=== PATIENT | female | born 1950 | race Caucasian/White ===

== ENCOUNTER → 2017-03-29 | Outpatient (CLI) | payer MEDICARE, OTHER ==
[~2017-03-29] MED LIST: IOPAMIDOL 76% 75 ML INFUS BTL 75 ML ONE; NS 0.9% 20 ML SDV 40 ML ONE
--- NOTE | 2017-03-29 13:41 | RADIOLOGY IMAGING REPORT ---
FACILITY: [facility] PATIENT NAME: Meera Maguire : 1950 MR: [id number] V: [id number] EXAM DATE: ORDERING PHYSICIAN: SLIME DEE TECHNOLOGIST: Location: [facility] [place] Patient: Meera Maguire : 1950 Visit/Account:[id number] Date of Sevice: 03/29/2017 EXAMINATION: CT sinus with IV contrast HISTORY: Chronic maxillary sinusitis. COMPARISON: None. TECHNIQUE: Contiguous axial images were obtained through the paranasal sinuses with intravenous cont rast administration. Coronal and sagittal reformatted images were obtained from the axial source data . CONTRAST: 75 mL of IV [id number]. One of the following dose optimization techniques was utilized in the performance of this exam: Autom ated exposure control; adjustment of the mA and/or kV according to the patient's size; or use of an i terative reconstruction technique. Specific details can be referenced in the facility's radiology C T exam operational policy. FINDINGS: Maxillary sinuses: Minimal mucosal thickening in both maxillary sinuses measuring less than 5 mm. Frontal sinuses: The frontal sinuses are hypoplastic. The frontal sinuses are clear. Ethmoid air cells: Mild mucosal thickening in the bilateral ethmoid air cells. Sphenoid sinuses: Sphenoid sinuses are relatively small. The sphenoid sinuses are clear. Ostiomeatal units: Patent. Nasal septum/nasal cavity: There is mild nasal septal deviation to the right with a bony spur project ing laterally causing mild narrowing of the right nasal cavity. There are moderate-sized bilateral u ncomplicated katharina bullosa. Enhancement: Normal. Orbits: Negative. Visualized intracranial contents/soft tissues: Negative. TMJs: Negative. IMPRESSION: 1. Mild nonobstructive inflammation of the bilateral maxillary sinuses and ethmoid air cells. 2. Nasal septal deviation to the right with a bony spur projecting laterally causing mild narrowing of the right nasal cavity. 3. Moderate sized, bilateral, uncomplicated katharina bullosa. Report Dictated By: Katalina Mir MD at 03/29/2017 1:32 PM Report E-Signed By: Katalina Mir MD at 03/29/2017 1:36 PM WSN:[id number]
== END ==
LOC: CT 02:49
PROVIDERS: ATTEND Family Medicine
DX: J34.89 Other specified disorders of nose and nasal sinuses (principal); J34.2 Deviated nasal septum
CPT/HCPCS: 70487; J7050; Q9967

== ENCOUNTER → 2018-05-13 | Outpatient (CLI) | payer MEDICARE, OTHER ==
--- NOTE | 2018-05-13 12:48 | RADIOLOGY IMAGING REPORT ---
FACILITY: [facility] PATIENT NAME: Meera Maguire : 1950 MR: [id number] V: [id number] EXAM DATE: ORDERING PHYSICIAN: BG CABALLERO TECHNOLOGIST: Location: [facility] [place] Patient: Meera Maguire : 1950 Visit/Account:[id number] Date of Sevice: 05/13/2018 Study: CT scan of the thoracic spine without contrast. Indication: Back pain, previous abnormal MRI of the cervical spine Comparison study: MRI of the cervical spine dated 04/30/2018 Technique: Multiple axial images are obtained through the thoracic spine without the use of intraveno us contrast. Coronal and sagittal two-dimensional reconstructions were made from the original data se t. One of the following dose optimization techniques was utilized in the performance of this exam: Autom ated exposure control; adjustment of the mA and/or kV according to the patient's size; or use of an i terative reconstruction technique. Specific details can be referenced in the facility's radiology C T exam operational policy. Alignment:There is normal alignment of the thoracic vertebrae. Paraspinal soft tissues: Unremarkable There is no significant bony abnormality of the thoracic spine. Specifically, there is no evidence o f significant abnormality of the right aspect of the T2 and T3 vertebrae. The right-sided posterior elements are unremarkable in appearance. There is mild degenerative disease of the thoracic spine. There is mild degenerative joint disease of the right-sided T2-3 and T3-4 facets. Disc spaces: Unremarkable IMPRESSION: No significant bony abnormality identified. There is mild degenerative disease of the ri ght-sided T2-3 and T3-4 facets. There is no evidence of bony metastatic disease. Report Dictated By: Nathan Stone at 05/13/2018 12:36 PM Report E-Signed By: Nathan Stone at 05/13/2018 12:45 PM WSN:[id number]
== END ==
LOC: CT 01:33
PROVIDERS: ATTEND Physical Medicine & Rehabilitation Pain Medicine
DX: M47.894 Other spondylosis, thoracic region (principal)
CPT/HCPCS: 72128